=== PATIENT | male | born 1985 | race American Indian/Alaskan Native ===

== ENCOUNTER 2018-04-06 18:20 | Emergency (ER) | payer MEDICARE ==
[2018-04-06 18:38] VITALS: BMI 26.4
[2018-04-06] MEDS ORDERED: Sodium Chloride 0.9% 1,000 ML IV STA (18:53)
--- NOTE | 2018-04-06 18:53 | ED PDOC ---
Arrival/HPI - General Historian: Patient - History of Present Illness Time/Duration: Other (see hpi) Context: Home <Patrizia Cooney - Last Filed: 04/06/18 20:20> <Jim Salmon - Last Filed: 04/06/18 22:01> - General Chief Complaint: Abdominal Pain Time Seen by Provider: 04/06/18 18:29 - History of Present Illness Narrative History of Present Illness (Text): 04/06/18 18:53 This 32 yo male with pmh hyperthyroidism, presents to this emergency department complaining of LLQ abdominal pain, nausea, vomiting since 7 am this morning. Patient stated he has been having same symptoms for over a month now. he said he was at [facility] 1[place]2 weeks ago. He said all test were normal. He stated that he went to [facility] 3-4 days ago, where he had blood test, and x-rays which they were normal again. He said he continues with symptoms. Patient denies following his private doctor, or GI specialist. He denies shortness of breath, chest pain, rectal bleeding, dizziness, or abnormal gait. (Patrizia Cooney) Past Medical History - Provider Review Nursing Documentation Reviewed: Yes - Infectious Disease Hx of Infectious Diseases: None - Pulmonary Hx Asthma: Yes - Endocrine/Metabolic Hx Hypothyroidism: Yes - Psychiatric Hx Substance Use: No <Patrizia Cooney - Last Filed: 04/06/18 20:20> Family/Social History - Physician Review Nursing Documentation Reviewed: Yes Family/Social History: Other (noncontributory) Smoking Status: Current Some Days Smoker Hx Alcohol Use: Yes Frequency of alcohol use: Socially Hx Substance Use: No <Patrizia Cooney - Last Filed: 04/06/18 20:20> Allergies/Home Meds <Patrizia Cooney - Last Filed: 04/06/18 20:20> <Jim Salmon - Last Filed: 04/06/18 22:01> Allergies/Adverse Reactions: Allergies milk Allergy (Verified 04/06/18 18:38) ANAPHYLAXIS seafood Allergy (Uncoded 04/06/18 18:39) ANAPHYLAXIS Home Medications: Home Meds Medication Instructions Recorded Confirmed Albuterol HFA [Ventolin HFA 90 1 puff INH QID PRN 08/09/18 08/09/18 mcg/actuation (8 g)] Review of Systems - Review of Systems Constitutional: Normal. absent: Fatigue, Weight Change, Fevers Eyes: Normal ENT: Normal Respiratory: Normal Cardiovascular: Normal Gastrointestinal: Normal Genitourinary Male: Normal Musculoskeletal: Normal Skin: Normal Neurological: Normal Endocrine: Normal Hemo/Lymphatic: Normal Psychiatric: Normal <CooneyNahim P - Last Filed: 04/06/18 20:20> Physical Exam Temperature: Afebrile Blood Pressure: Normal Pulse: Regular Respiratory Rate: Normal Appearance: Positive for: Well-Appearing, Non-Toxic, Comfortable Pain Distress: None Mental Status: Positive for: Alert and Oriented X 3 - Systems Exam Head: Present: Atraumatic, Normocephalic Pupils: Present: PERRL Extroacular Muscles: Present: EOMI Conjunctiva: Present: Normal Mouth: Present: Moist Mucous Membranes Neck: Present: Normal Range of Motion Respiratory/Chest: Present: Clear to Auscultation, Good Air Exchange. No: Respiratory Distress, Accessory Muscle Use Cardiovascular: Present: Regular Rate and Rhythm, Normal S1, S2. No: Murmurs Abdomen: No: Tenderness, Distention, Peritoneal Signs Back: Present: Normal Inspection Upper Extremity: Present: Normal Inspection. No: Cyanosis, Edema Lower Extremity: Present: Normal Inspection. No: Edema Neurological: Present: GCS=15, CN II-XII Intact, Speech Normal Skin: Present: Warm, Dry, Normal Color. No: Rashes Psychiatric: Present: Alert, Oriented x 3, Normal Insight, Normal Concentration <Cooney,Nahim P - Last Filed: 04/06/18 20:20> Vital Signs Temp Pulse Resp BP Pulse Ox 04/06/18 20:32 98 H 18 181/102 H 95 04/06/18 19:30 98.7 F 94 H 18 100/88 100 Medical Decision Making - Lab Interpretations I have reviewed the lab results: Yes Interpretation: No clinic. lab abnormalty <Patrizia Cooney P - Last Filed: 04/06/18 20:20> <Jim Salmon - Last Filed: 04/06/18 22:01> ED Course and Treatment: 04/06/18 21:55 CT Abdomen and Pelvis reviewed by radiologist, shows: Normal abdomen and pelvis. (Jim Salmon) - Lab Interpretations Lab Results: 04/06/18 19:43 04/06/18 19:43 Lab Results 04/06/18 19:43: Urine Opiates Screen Negative, Urine Methadone Screen Negative, Ur Barbiturates Screen Negative, Ur Phencyclidine Scrn Negative, Ur Amphetamines Screen Negative, U Benzodiazepines Scrn Negative, U Oth Cocaine Metabols Negative, U Cannabinoids Screen Positive H 04/06/18 19:43: Sodium 147, Potassium 3.8, Chloride 104, Carbon Dioxide 28, Anion Gap 18, BUN 11, Creatinine 0.7 L, Est GFR ( Amer) > 60, Est GFR ( Non-Af Amer) > 60, Random Glucose 105, Calcium 10.2, Magnesium 1.6 L, Total Bilirubin 1.1, AST 20, ALT 28, Alkaline Phosphatase 143 H, Total Protein 8.7 H, Albumin 5.0 H, Globulin 3.7, Albumin/Globulin Ratio 1.4, Lipase 17 L 04/06/18 19:43: WBC 9.1, RBC 5.01, Hgb 16.4, Hct 44.3, MCV 88.4, MCH 32.7, MCHC 37.0, RDW 11.9, Plt Count 195, MPV 10.8, Gran % 84.1 H, Lymph % (Auto) 11.1 L, [place] % (Auto) 4.6, Eos % (Auto) 0.1 L, Baso % (Auto) 0.1, Gran # 7.61 H, Lymph # (Auto) 1.0 L, [place] # (Auto) 0.4, Eos # (Auto) 0.0, Baso # (Auto) 0.01 - RAD Interpretation Radiology Orders: 04/06/18 18:54 ABD & PELVIS IV CONTRAST ONLY [CT] Stat - Medication Orders Current Medication Orders: Discontinued Medications Famotidine (Pepcid) 20 mg IVP STAT STA Stop: 04/06/18 18:54 Last Admin: 04/06/18 19:46 Dose: 20 mg IVP Administration Document 04/06/18 19:46 AD (Rec: 04/06/18 19:46 [email or web address] Charges for Administration # of IVP Administrations 1 Sodium Chloride (Sodium Chloride 0.9%) 1,000 mls @ 1,000 mls/hr IV .Q1H STA Stop: 04/06/18 19:52 Last Admin: 04/06/18 19:45 Dose: 1,000 mls/hr eMAR Start Stop Document 04/06/18 19:45 AD (Rec: 04/06/18 19:45 AD [email or web address] Intravenous Solution Start Date 04/06/18 Start Time 19:45 Morphine Sulfate (Morphine) 4 mg IVP STAT STA Stop: 04/06/18 19:05 Last Admin: 04/06/18 19:46 Dose: 4 mg MAR Pain Assessment Document 04/06/18 19:46 AD (Rec: 04/06/18 19:46 AD [email or web address] Pain Reassessment Is this a pain reassessment? No Presence of Pain Presence of Pain Yes IVP Administration Document 04/06/18 19:46 AD (Rec: 04/06/18 19:46 AD [email or web address] Charges for Administration # of IVP Administrations 1 Ondansetron HCl (Zofran Inj) 4 mg IVP STAT STA Stop: 04/06/18 18:54 Last Admin: 04/06/18 19:46 Dose: 4 mg IVP Administration Document 04/06/18 19:46 AD (Rec: 04/06/18 19:46 AD [email or web address] Charges for Administration # of IVP Administrations 1 Disposition/Present on Arrival - Present on Arrival History of DVT/PE: No History of Uncontrolled Diabetes: No Urinary Catheter: No History of Decub. Ulcer: No History Surgical Site Infection Following: None <Patrizia Cooney - Last Filed: 04/06/18 20:20> - Present on Arrival Any Indicators Present on Arrival: No History of DVT/PE: No History of Uncontrolled Diabetes: No Urinary Catheter: No History of Decub. Ulcer: No History Surgical Site Infection Following: None - Disposition Have Diagnosis and Disposition been Completed?: Yes Disposition Time: 21:59 Patient Plan: Discharge <Jim Salmon - Last Filed: 04/06/18 22:01> - Disposition Diagnosis: Pain, abdominal, nonspecific Disposition: HOME/ ROUTINE Condition: GOOD Discharge Instructions (ExitCare): Acute Abdomen (Belly Pain), Adult (DC) Additional Instructions: Mr Gutiérrez - All your tests are normal. Please follow up with the Shipping [employer]. Dr. Castellanos. Return to us if worse or new symptoms occur. Best- Dr. Jim Salmon Referrals: Andrés Castellanos MD [Medical Doctor] - Follow up with primary Forms: [facility] [facility] ([place]), WORK NOTE, SCHOOL NOTE
[2018-04-06] MEDS ORDERED: Morphine 4 mg/ml ISec IVP STA (19:04)
[2018-04-06 19:55] LABS: BASO # 0.01 K/mm3 (0.0-2.0); BASO % 0.1 % (0.0-3.0); EOS % 0.1 % (1.5-5.0); GRAN # 7.61 (1.4-6.5); GRAN % 84.1 % (50.0-68.0); HEMOGLOBIN 16.4 g/dL (14.0-18.0); LYMPH % 11.1 % (22.0-35.0); MEAN CELL VOLUME 88.4 fl (80.0-105.0); MEAN CORPUSCULAR HEMOGLOBIN 32.7 pg (25.0-35.0); MEAN PLATELET VOLUME 10.8 fl (7.0-11.0); MONO # 0.4 (0.1-0.6); MONO % 4.6 % (1.0-6.0); RBC 5.01 10^6/uL (3.5-6.1); RED CELL DISTRIBUTION WIDTH 11.9 % (11.5-14.5); WHITE BLOOD COUNT 9.1 10^3/ul (4.5-11.0)
[2018-04-06 20:06] LABS: ALB/GLOB RATIO 1.4 (1.1-1.8); ALT/SGPT 28 U/L (7-56); AST/SGOT 20 U/L (17-59); BLOOD UREA NITROGEN 11 mg/dL (7-21); CALCIUM 10.2 mg/dL (8.4-10.5); GFR AFRICAN-AMERICAN > 60; GFR NON-AFRICAN AMERICAN > 60; LIPASE 17 U/L (23-300)
[2018-04-06 20:13] LABS: BARBITURATES, UR NEGATIVE (NEGATIVE)
[2018-04-06 20:16] LABS: BENZODIAZEPINES, UR NEGATIVE (NEGATIVE); OPIATES, UR NEGATIVE (NEGATIVE); PHENCYCLIDINE, UR NEGATIVE (NEGATIVE)
[2018-04-06 20:23] VITALS: RESP 18; TEMP 98.7
[2018-04-06 22:40] VITALS: BP 148/89; PULSE 95; O2SAT 100
--- NOTE | 2018-04-07 09:35 | CT ---
Date of service: 04/06/2018 PROCEDURE: CT Abdomen and Pelvis without intravenous contrast HISTORY: LLQ abdominal pain COMPARISON: None. TECHNIQUE: Technique. Contrast dose: Radiation dose: Total exam DLP = mGy-cm. This CT exam was performed using one or more of the following dose reduction techniques: Automated exposure control, adjustment of the mA and/or kV according to patient size, and/or use of iterative reconstruction technique. FINDINGS: LOWER THORAX: Unremarkable. LIVER: Unremarkable. No gross lesion or ductal dilatation. GALLBLADDER AND BILE DUCTS: Unremarkable. PANCREAS: Unremarkable. No gross lesion or ductal dilatation. SPLEEN: Unremarkable. ADRENALS: Unremarkable. No mass. KIDNEYS AND URETERS: Unremarkable. No hydronephrosis. No solid mass. VASCULATURE: Unremarkable. No aortic aneurysm. BOWEL: Unremarkable. No obstruction. No gross mural thickening. APPENDIX: Unremarkable. Normal appendix. PERITONEUM: Unremarkable. No free fluid. No free air. LYMPH NODES: Unremarkable. No enlarged lymph nodes. BLADDER: Unremarkable. REPRODUCTIVE: Unremarkable. BONES: No acute fracture. OTHER FINDINGS: None. IMPRESSION: Unremarkable non contrast enhanced CT of the abdomen and pelvis.
== END 2018-04-06 22:20 | disposition home or self-care (01) ==
LOC: MERGE 18:20 → ED 18:20
DX: R10.9 Unspecified abdominal pain (principal)
CPT/HCPCS: 74177; 80053; 83690; 83735; 85025; 96374; 96375; 99285; G0480; J2270; J2405; J7030; Q9967